=== PATIENT | male | born 1990 | race Two or more races ===

== ENCOUNTER 2025-06-19 14:43 | Emergency (ER) | payer BC ==
[~2025-06-19] VITALS: Ht 180.3 cm; Wt 77.1 kg
[2025-06-19] MEDS: IV NORMAL SALINE 1000 ML BAG IV ONE (15:00)
[2025-06-19] MEDS ORDERED: METOCLOPRAMIDE HCL 10 MG/2 ML VIAL ONE (15:09)
[2025-06-19] MEDS ORDERED: diphenhydrAMINE 50 MG/1 ML VIAL ONE ×2 (15:09→15:48)
[2025-06-19] MEDS: LORAZEPAM 2 MG/1 ML VIAL IV ONE (15:10)
[2025-06-19] MEDS ORDERED: LORAZEPAM 2 MG/1 ML VIAL ONE (15:10)
[2025-06-19] MEDS: diphenhydrAMINE 50 MG/1 ML VIAL IV ONE ×2 (15:16→15:53)
[2025-06-19] MEDS: METOCLOPRAMIDE HCL 10 MG/2 ML VIAL IV ONE (15:16)
[2025-06-19 15:20] LABS: PLATELET COUNT (AUTO) 388 K/uL (152-348); RED BLOOD CELL COUNT(AUTO) 5.37 MIL/uL (4.06-5.63); RED CELL DISTRIBUTION WIDTH 13.2 % (12.1-16.2); WHITE BLOOD COUNT (AUTO) 12.6 K/uL (3.6-10.2)
[2025-06-19 15:31] LABS: CREATININE 1.1 mg/dL (0.6-1.3); SODIUM SERUM 144.0 mmol/L (136-145); UREA NITROGEN, BLOOD 10.0 mg/dL (7-18)
[2025-06-19 15:36] LABS: ETHANOL < 3 MG/DL (0-10)
[2025-06-19 15:37] LABS: ASPARTATE AMINOTRANSFERASE 35.0 U/L (15-37); TOTAL PROTEIN, SERUM 7.3 g/dL (6.4-8.2)
[2025-06-19] MEDS ORDERED: HALOPERIDOL LACTATE 5 MG/1 ML VIAL ONE (15:48)
[2025-06-19] MEDS: HALOPERIDOL LACTATE 5 MG/1 ML VIAL IV ONE (15:52)
[2025-06-19] MEDS: LIDOCAINE 2% (GLYDO= UROJET) 10 ML JELLY MM ONE (20:02)
[2025-06-19 20:35] LABS: *BILIRUBIN,URIN NEGATIVE (NEGATIVE); *CLARITY,URINE CLEAR (CLEAR); *COLOR,URINE YELLOW (YELLOW); *KETONES,URINE TRACE (NEGATIVE); *PROTEIN,URINE 1+ (NEGATIVE); *UROBILINOGEN,URINE 1.0 E.U./dl (NORMAL); LEUKOCYTE ESTERASE ,URINE NEGATIVE (NEGATIVE); NITRITE, URINE NEGATIVE (NEGATIVE); UGLUCOSE NEGATIVE (NEGATIVE)
[2025-06-19 20:36] LABS: *BLOOD, URINE TRACE (NEGATIVE)
[2025-06-19 20:42] LABS: SQUAMOUS EPITHELIAL CELL,UR FEW /HPF (NONE SEEN)
[2025-06-19 20:46] LABS: *AMPHETAMINE, URINE NEGATIVE (NEGATIVE); *BARBITURATE, URINE NEGATIVE (NEGATIVE); *BENZODIAZEPINE, URINE NEGATIVE (NEGATIVE); *CANNABINOID, URINE POSITIVE (NEGATIVE); *COCCAINE, URINE POSITIVE (NEGATIVE); *OPIATE, URINE NEGATIVE (NEGATIVE); *PHENCYCLIDINE SCREEN,URINE NEGATIVE (NEGATIVE); FENTANYL, URINE POSITIVE (NEGATIVE)
[2025-06-20] MEDS ORDERED: QUET100T PO (08:45)
[2025-06-20] MEDS ORDERED: HYDR50TA62 PO (08:45)
[2025-06-20] MEDS ORDERED: LORA-259 PO (08:45)
[2025-06-20] MEDS ORDERED: CLON0.1T PO (08:45)
[2025-06-20] MEDS ORDERED: ONDA-104 PO (08:45)
[2025-06-20] MEDS ORDERED: METH-807 PO (08:45)
[2025-06-20] MEDS ORDERED: THIA100T74 PO (08:45)
[2025-06-20] MEDS ORDERED: CLONIDINE HCL 0.2 MG TABLET ONE (08:48)
[2025-06-20] MEDS: CLONIDINE HCL 0.2 MG TABLET PO ONE (08:51)
[2025-06-20 10:06] VITALS: BP 145/94
[2025-06-20 10:39] VITALS: BP 145/94; TEMP 97.8; O2SAT 98
== END 2025-06-20 10:40 | disposition home or self-care (01) ==
LOC: ER 14:43
DX: F15.10 Other stimulant abuse, uncomplicated (principal); R11.0 Nausea; R51.9 Headache, unspecified; Z79.899 Other long term (current) drug therapy
CPT/HCPCS: 80076; 80048; 81001; 85025; 36415; 70450; 93005; 99285; 96361; 96374; 96375; 96376; 80320; 80307; J1200 ×2; J1630; J2060; J2765; J7040 ×2; A4606; A4663; G0480

== ENCOUNTER 2025-06-23 19:39 | Emergency (ER) | payer BC, OTHER ==
[~2025-06-23] VITALS: Ht 180.3 cm; Wt 77.1 kg
[~2025-06-23 19:39] MED LIST: CLON0.1T PO; HYDR50TA62 PO; LORA-259 PO; METH-807 PO; ONDA-104 PO; QUET100T PO; THIA100T74 PO
[2025-06-23 21:19] VITALS: BP 131/82
[2025-06-23 21:43] LABS: PLATELET COUNT (AUTO) 422 K/uL (152-348); RED BLOOD CELL COUNT(AUTO) 5.54 MIL/uL (4.06-5.63); RED CELL DISTRIBUTION WIDTH 13.4 % (12.1-16.2); WHITE BLOOD COUNT (AUTO) 13.6 K/uL (3.6-10.2)
[2025-06-23 21:51] LABS: CREATININE 1.2 mg/dL (0.6-1.3); SODIUM SERUM 141.0 mmol/L (136-145); UREA NITROGEN, BLOOD 20.0 mg/dL (7-18)
[2025-06-23 21:55] LABS: ETHANOL < 3 MG/DL (0-10)
[2025-06-23 21:55] LABS: *BILIRUBIN,URIN NEGATIVE (NEGATIVE); *CLARITY,URINE CLEAR (CLEAR); *COLOR,URINE YELLOW (YELLOW); *KETONES,URINE TRACE (NEGATIVE); *PROTEIN,URINE TRACE (NEGATIVE); *UROBILINOGEN,URINE 0.2 E.U./dl (NORMAL); LEUKOCYTE ESTERASE ,URINE NEGATIVE (NEGATIVE); NITRITE, URINE NEGATIVE (NEGATIVE); UGLUCOSE NEGATIVE (NEGATIVE)
[2025-06-23 21:56] LABS: ASPARTATE AMINOTRANSFERASE 21.0 U/L (15-37); TOTAL PROTEIN, SERUM 7.3 g/dL (6.4-8.2)
[2025-06-23 21:56] LABS: *BLOOD, URINE TRACE (NEGATIVE)
[2025-06-23 22:06] LABS: *AMPHETAMINE, URINE NEGATIVE (NEGATIVE); *BARBITURATE, URINE NEGATIVE (NEGATIVE); *BENZODIAZEPINE, URINE NEGATIVE (NEGATIVE); *CANNABINOID, URINE POSITIVE (NEGATIVE); *COCCAINE, URINE POSITIVE (NEGATIVE); *OPIATE, URINE NEGATIVE (NEGATIVE); *PHENCYCLIDINE SCREEN,URINE NEGATIVE (NEGATIVE); FENTANYL, URINE NEGATIVE (NEGATIVE)
[2025-06-23 22:14] LABS: SQUAMOUS EPITHELIAL CELL,UR NONE SEEN /HPF (NONE SEEN)
[2025-06-23 22:15] LABS: URINE AMORPHOUS URATE MODERATE /HPF
[2025-06-23 22:56] VITALS: BP 128/82; TEMP 98; O2SAT 97
== END 2025-06-23 22:56 | disposition home or self-care (01) ==
LOC: ER 19:46
DX: H53.8 Other visual disturbances (principal); E86.0 Dehydration; F17.200 Nicotine dependence, unspecified, uncomplicated; Z79.899 Other long term (current) drug therapy; Z20.822 Contact with and (suspected) exposure to COVID-19
CPT/HCPCS: 36415; 85025; A4606; A4663; G0480